=== PATIENT | female | born 1950 | race Caucasian/White ===

== ENCOUNTER 2023-01-15 09:00 | Outpatient (CLI) | payer MEDICARE, SELFPAY | END 2023-01-15 09:01 | disposition home or self-care (01) | LOC: NFLDREF 17:37 | PROVIDERS: PCP Nurse Practitioner Family; Referring Provider Nurse Practitioner Family; Visit Provider Nurse Practitioner Family | DX: R53.83 Other fatigue (principal); Z13.6 Encounter for screening for cardiovascular disorders | CPT/HCPCS: 80053; 80061 ==

== ENCOUNTER 2023-03-20 09:58 | Outpatient (CLI) | payer MEDICARE, SELFPAY ==
--- NOTE | 2023-03-20 10:15 | CRLHL7_ITS ---
For Patients: As a result of the Century Cures Act, medical imaging exams and procedure reports are released immediately into your electronic medical record. You may view this report before your referring provider. If you have questions, please contact your health care provider. BILATERAL SCREENING MAMMOGRAM WITH COMPUTER-AIDED DETECTION AND TOMOSYNTHESIS TECHNIQUE: CC and MLO views were obtained. These mammographic images have been obtained using full-field digital technique. These mammographic images were interpreted with the benefit of computer-aided detection. Breast Tomosynthesis was used in this interpretation. COMPARISON FILM: 11/05/20, 09/04/17, 10/14/09. FINDINGS: The breasts are heterogeneously dense, which may obscure small masses IMPRESSION: There is no radiographic evidence for malignancy. ASSESSMENT: BI-RADS Category 2: Benign RECOMMENDATION: Routine screening mammogram in 1 year. A lay language report of this examination will be provided to the patient. Juan Francisco Mendoza M.D. Diagnostic Radiologist [email or web address] TANESHA/Dictated by: Juan Francisco Mendoza MD @ 03/22/2023 11:35:00 AM (Electronically Signed)
== END 2023-03-20 09:59 | disposition home or self-care (01) ==
LOC: MAMMO 09:59
PROVIDERS: PCP Nurse Practitioner Family; Visit Provider Nurse Practitioner Family
DX: Z12.31 Encounter for screening mammogram for malignant neoplasm of breast (principal); R92.2 Inconclusive mammogram
CPT/HCPCS: 77063; 77067

== ENCOUNTER 2024-03-07 09:26 | Inpatient (IN) | payer MEDICARE, SELFPAY ==
[2024-03-07] VITALS (20 sets, daily range): BP systolic 84–118; BP diastolic 58–81; PULSE 67–88; RESP 14–96; TEMP 36.1–37.1; O2SAT 93–98; BMI 23.7; BMI 23.4
--- NOTE | 2024-03-07 09:39 | ED.GENADULT ---
HPI - General Adult General Time Seen by Provider: 09:39 Date Seen: 03/07/24 Chief complaint: Weakness Stated complaint: Nausea, weakness Time Seen by Provider: 03/07/24 09:38 Source: patient and RN notes reviewed Mode of arrival: ambulatory Limitations: no limitations History of Present Illness HPI narrative: This 73-year-old female is coming in accompanied by family with complaint of anorexia and weakness. Over the weekend she ran fevers up to 102, had headaches with this. Headaches have somewhat resolved but she still left with lack of appetite, nausea without vomiting. She has not had any diarrhea or abdominal pain. She really has not had any stool production but admits she is not eating. She has both nausea and anorexia. She is feeling dehydrated. She has had no cough, no sore throat, respiratory symptoms. Denies any urinary symptoms but has not urinated, feels this is from a lack of hydration. She has no pain anywhere at this time. She just has no energy, is weak. She was at a family reunion 2 weeks ago. Denies any chronic health issues outside of reflux disease. Her mom of recurrent breast cancer, dad from multiple myeloma. Related Data Home Medications ?Medication ?Instructions ?Recorded ?Confirmed pantoprazole 40 mg tablet,delayed 40 mg PO QDAY 09/14/22 03/07/24 release tolterodine 4 mg capsule,extended 4 mg PO Q24H 09/14/22 12/21/22 release 24 hr Previous Rx's ?Medication ?Instructions ?Recorded estradiol 0.01% (0.1 mg/gram) 1 g vaginal 2XW #42.5 grams 12/21/22 vaginal cream Allergies Allergy/AdvReac Type Severity Reaction Status Date / Time bupropion Allergy Mild Rash Verified 03/07/24 09:35 Review of Systems Status of ROS: Reports: 6 or more systems reviewed and unremarkable except as noted in History and below [facility] Medical History Adenoma of colon ?D12.6 - Benign neoplasm of colon, unspecified (ICD-10) Surgical History S/P bunionectomy ?Z98.890 - Other specified postprocedural states (ICD-10) Family History Other Breast cancer Diabetes Social History Narrative: Tobacco user Smoking Status: Current every day smoker Exam Const: Vital Signs, click to edit/add: Vital Signs - 24 hr 03/07/24 09:30 03/07/24 09:35 03/07/24 09:37 Temperature 97 F L Pulse Rate 82 Pulse Rate [Pulse Oximeter] 88 Respiratory Rate 14 Blood Pressure Blood Pressure [Ri ght Upper Arm] 91/59 L Pulse Oximetry 96 96 93 Oxygen Delivery Me thod Room Air Room Air 03/07/24 10:01 03/07/24 10:10 03/07/24 10:11 Temperature Pulse Rate 73 75 Pulse Rate [Pulse Oximeter] Respiratory Rate 16 Blood Pressure 84/73 L 106/68 Blood Pressure [Ri ght Upper Arm] Pulse Oximetry 96 96 Oxygen Delivery Me thod Room Air Room Air Room Air 03/07/24 10:30 03/07/24 10:31 03/07/24 10:32 Temperature Pulse Rate 84 82 85 Pulse Rate [Pulse Oximeter] Respiratory Rate 16 Blood Pressure 92/65 Blood Pressure [Ri ght Upper Arm] Pulse Oximetry 95 96 96 Oxygen Delivery Me thod Room Air Room Air 03/07/24 11:01 03/07/24 11:02 03/07/24 11:30 Temperature Pulse Rate 75 80 76 Pulse Rate [Pulse Oximeter] Respiratory Rate 16 Blood Pressure 103/72 Blood Pressure [Ri ght Upper Arm] Pulse Oximetry 96 96 96 Oxygen Delivery Me thod 03/07/24 11:31 Temperature Pulse Rate 79 Pulse Rate [Pulse Oximeter] Respiratory Rate Blood Pressure 101/77 Blood Pressure [Ri ght Upper Arm] Pulse Oximetry 97 Oxygen Delivery Me thod This 73-year-old female is alert, interactive, no apparent stress. She is alert and conversive, able speak in complete sentences. She is of slender frame. Sclera clear, conjugate gaze. Symmetrical facial function. Neck is supple, no adenopathy, no thyromegaly masses or nodules. She is able to sit up, lungs are clear, good air entry, no wheezing or crackles, no tachypnea. CV regular rate and rhythm, no murmur, normal S1-S2, no S3-S4. While I was in with her, on the complaint analyst she had a short maybe 3 or 4 second run of probable SVT. Rate was about 180, definitely regular. Patient did not feel this at all. Abdomen is soft, nontender, nondistended, no organomegaly, no masses, rebound or guarding. She has absolutely no lower extremity edema. See no concerning changes on her skin. She is moving extremities, no focal deficit noted. Documenting provider has reviewed patient's vital signs: yes Course Course ED Course: This is a patient presenting with generalized weakness, fevers over the weekend but now gone. She still has anorexia, nausea. Also noted a she short run of SVT here, did review this with her, certainly could be indicative of underlying dehydration and illness. Do wonder about COVID, this is been collected. Will give her L of IV fluids, obtain full complement of labs. Will not be doing a blood culture at this time but need to consider it if this does look like this is a significant infection. Will do screening portable chest x-ray. May need to consider adding on tick-borne panel given her history and if no other source is found. Did review with her that occult UTIs can% to this way in older individuals. This certainly could just be a viral syndrome like COVID. Etiologies are brought at this point, will do advanced imaging if need be. She is certainly has a lower blood pressure on presentation but this is a slender woman, will watch this blood pressure. Will see how she feels after a L of IV fluids. Consultations Consultation #1: Have reviewed this case with hospitalist Dr. Velez. She was actually down here in the ER, believes that this patient should be hospitalized as well, went over the case. Went into introduce the patient and the hospitalists, explained briefly our concern for tick-borne pathology. Will initiate 100 mg IV doxycycline. Patient did also get a 2 L of fluids while in the ER, certainly has dehydration. Have added on tick panel, Lyme, West Nile as well as a Monospot given the elevated liver enzymes. Not very likely to be mono but will be inclusive in the workup. Time: 11:50 Vital Signs Vital signs: Initial Vital Signs Pulse Oximetry 96 03/07/24 09:30 Vital Signs Pulse Oximetry 96 03/07/24 09:30 Temperature 97 F L 03/07/24 09:35 Pulse Rate 79 03/07/24 11:31 Respiratory Rate 16 03/07/24 11:02 Blood Pressure 101/77 03/07/24 11:31 Pulse Oximetry 97 03/07/24 11:31 Oxygen Delivery Method Room Air 03/07/24 10:31 Medications Administered Medications: Generic Name Dose Route Start Last Admin Trade Name Freq PRN Reason Stop Dose Admin Sodium Chloride 1,000 mls @ 500 mls/hr 03/07/24 10:51 03/07/24 11:05 0.9 % Sodium Chloride 1000 Ml IV 03/07/24 12:50 500 mls/hr .Q2H SUSAN Administration Discontinued Medications Generic Name Dose Route Start Last Admin Trade Name Freq PRN Reason Stop Dose Admin Sodium Chloride 1,000 mls @ 1,000 mls/hr 03/07/24 09:47 03/07/24 10:55 0.9 % Sodium Chloride 1000 Ml IV 03/07/24 10:46 Infused .Q1H SUSAN Infusion Medical Decision Making Lab Data Lab results reviewed: Yes I reviewed the patient's lab results Labs: Lab Results 03/07/24 03/07/24 03/07/24 Range/Units 09:35 09:55 10:55 WBC 5.43 (4.50-11.00) K/uL RBC 5.15 (4.00-5.20) m/uL Hgb 16.3 H (12.0-16.0) gm/dL Hct 47.4 (33.0-51.0) % MCV 92 (80-100) fL MCH 32 (26-34) pg MCHC 34 (32-36) gm/dL RDW Coeff of [place] 13.6 (11.5-15.5) % Plt Count 60 L (140-440) K/uL Neut % (Auto) 55.4 (42.0-72.0) % Lymph % (Auto) 36.8 (20-44) % [place] % (Auto) 6.6 (0.0-11.0) % Eos % (Auto) 0.2 (0.0-7.0) % Baso % (Auto) 0.6 (0.0-3.0) % Neut # (Auto) 3.01 (1.7-7.0) K/uL Lymph # (Auto) 2.00 (0.90-2.90) K/uL [place] # (Auto) 0.40 (0.00-0.90) K/UL Eos # (Auto) 0.01 (0.00-0.50) K/uL Baso # (Auto) 0.03 (0.00-0.30) K/uL Abs Immat Gran (auto) 0.02 (0.00-0.30) K/uL Imm/Tot Granulo (auto) 0.4 % Diff Slide Review Acceptable Review (Acceptable) Sodium 131 L (135-149) mmol/L Potassium 3.3 L (3.6-5.1) mmol/L Chloride 100 (96-114) mmol/L Carbon Dioxide 22 (20-32) mmol/L Anion Gap 9 (7-15) mEq/L BUN 40 H (7-30) mg/dL Creatinine 1.4 (0.5-1.5) mg/dL Estimated Creat Clear 31.83 Estimated GFR 40 ml/min Glucose 139 H (60-115) mg/dL Lactate 2.5 H (0.5-1.9) mmol/L Calcium 8.8 (8.4-10.6) mg/dL Magnesium 2.2 (1.5-2.6) mg/dL Total Bilirubin 1.1 (0.1-1.5) mg/dL AST 60 H (12-35) U/L ALT 27 (4-35) U/L Alkaline Phosphatase 184 H (40-150) U/L Troponin I < 0.01 L (0.01-0.04) ng/mL C-Reactive Protein 21.4 H (0.5-1.0) mg/dL NT-Pro-B Natriuret Pep 265 pg/mL Total Protein 6.6 (6.0-8.3) g/dL Albumin 3.4 (3.3-5.0) g/dL Procalcitonin 2.84 H (<0.50) ng/mL Urine Color Dark yellow (Yellow) Urine Appearance Clear (Clear) Urine pH 5.5 (5.0-8.5) Ur Specific [place] 1.025 (1.000-1.030) Urine Protein 2+ A (Negative) Urine Glucose (UA) Negative (Negative) Urine Ketones Negative (Negative) Urine Blood 3+ A (Negative) Urine Nitrite Negative (Negative) Urine Bilirubin 1+ A (Negative) Urine Urobilinogen 2.0 A (0.2-1.0) Ur Leukocyte Esterase Negative (Negative) Urine RBC 10-25 A (0-2) Urine WBC 10-25 A (0-5) Ur Squamous Epith Cells Moderate A (None-Few) Urine Bacteria Many A (None) Hyaline Casts Moderate A (None-Few) SARS-CoV-2 (PCR) Negative SARS-CoV-2 (Negative) Influenza Type A (PCR) Negative PCR FLU A (Negative) Influenza Type B (PCR) Negative PCR FLU B (Negative) RSV (PCR) Negative PCR RSV (Negative) Imaging Data Chest x-ray: Attestation: I have reviewed the pertinent imaging results. My impression: No acute pneumonia or infiltrate seen on my preliminary review. Radiologist's impression: Patient: [facility] Facility:?[facility] Patient ID:?[id number] Site Patient ID:?[id number]. Site :?[id number] Study:?XRay-Chest 1 VIEW-03/07/2024 10:03:41 AM Ordering Physician:?Devon Wills Final Report: Indication: Weakness Technique: Chest 1 view Comparison: None Findings/Impression: Cardiovascular and mediastinum: Normal heart size with aortic tortuosity and atherosclerotic calcification. Some prominence of the aortic shadow at the level of the diaphragm. This can represent some aortic enlargement or hiatal hernia. As clinically desired, CT scan may have improved characterization. Lungs and pleural space: Lungs are clear. No sign of infiltrate or mass. No sign of pleural effusion. No pneumothorax. Bones and soft tissues: No acute findings. Dictated by Abelino Alvarez MD @ 03/07/2024 10:19:43 AM (Electronic Signature) ECG Data Attestation: I personally reviewed and interpreted this ECG as follows: (Normal sinus rhythm, 89 beats per minute. No acute ischemic change.) Prior ECG tracings: not available for review Discharge Plan Discharge Clinical Impression: Weakness, Acute dehydration, Thrombocytopenia, Elevated liver enzymes Patient Disposition: Admitted As Observation Condition: Unchanged Prescriptions: No Action tolterodine 4 mg capsule,extended release 24hr 4 mg PO Q24H pantoprazole 40 mg tablet,delayed release (DR/EC) 40 mg PO QDAY estradiol 0.01 % (0.1 mg/gram) cream 1 g vaginal 2XW Qty: 42.5 0RF Follow Up/Referrals: Charlee Ching, [facility] [Primary Care Provider] -
--- NOTE | 2024-03-07 09:47 | CRLHL7_ITS ---
For Patients: As a result of the Century Cures Act, medical imaging exams and procedure reports are released immediately into your electronic medical record. You may view this report before your referring provider. If you have questions, please contact your health care provider. Indication: Weakness Technique: Chest 1 view Comparison: None Findings/Impression: Cardiovascular and mediastinum: Normal heart size with aortic tortuosity and atherosclerotic calcification. Some prominence of the aortic shadow at the level of the diaphragm. This can represent some aortic enlargement or hiatal hernia. As clinically desired, CT scan may have improved characterization. Lungs and pleural space: Lungs are clear. No sign of infiltrate or mass. No sign of pleural effusion. No pneumothorax. Bones and soft tissues: No acute findings. Dictated by Abelino Alvarez MD @ 03/07/2024 10:19:43 AM (Electronically Signed)
[2024-03-07] MEDS: 0.9 % SODIUM CHLORIDE 1000 ml 1,000 ML IV (09:57)
[2024-03-07 10:04] LABS: Basophils Absolute Auto 0.03 K/uL (0.00-0.30); Basophils Percent Auto 0.6 % (0.0-3.0); Eosinophils Absolute Auto 0.01 K/uL (0.00-0.50); Eosinophils Percent Auto 0.2 % (0.0-7.0); Hematocrit 47.4 % (33.0-51.0); Hemoglobin* 16.3 gm/dL (12.0-16.0); Immature Granulocytes Abs Auto 0.02 K/uL (0.00-0.30); Immature Granulocytes Pct Auto 0.4 %; Lymphocytes Percent Auto 36.8 % (20-44); Mean Corpuscular HGB Conc 34 gm/dL (32-36); Mean Corpuscular Hemoglobin 32 pg (26-34); Mean Corpuscular Volume 92 fL (80-100); Monocytes Percent Auto 6.6 % (0.0-11.0); Neutrophils Absolute Auto 3.01 K/uL (1.7-7.0); Neutrophils Percent Auto 55.4 % (42.0-72.0); RDW Coefficient of Variation % 13.6 % (11.5-15.5); Red Blood Count 5.15 m/uL (4.00-5.20); White Blood Count* 5.43 K/uL (4.50-11.00)
[2024-03-07 10:33] LABS: Lactate* 2.5 mmol/L (0.5-1.9)
[2024-03-07 10:34] LABS: PCR FLU A Negative PCR FLU A (Negative); PCR FLU B Negative PCR FLU B (Negative); PCR RSV Negative PCR RSV (Negative); SARS PCR* Negative SARS-CoV-2 (Negative)
[2024-03-07 10:39] LABS: Platelet Count* 60 K/uL (140-440); Slide Review Reflex Yes
[2024-03-07 10:42] LABS: Slide Review Acceptable Review (Acceptable)
[2024-03-07 10:48] LABS: Albumin* 3.4 g/dL (3.3-5.0); Chloride* 100 mmol/L (96-114)
[2024-03-07 10:49] LABS: Potassium* 3.3 mmol/L (3.6-5.1); Sodium* 131 mmol/L (135-149)
[2024-03-07 10:51] LABS: Creatinine* 1.4 mg/dL (0.5-1.5); Est. Creatinine Clearance* 31.83; Estimated Glomerular Filt Rate 40 ml/min
[2024-03-07 10:52] LABS: Alanine Aminotransferase* 27 U/L (4-35); Alkaline Phosphatase* 184 U/L (40-150); Anion Gap 9 mEq/L (7-15); Aspartate Amino Transferase* 60 U/L (12-35); Bilirubin Total* 1.1 mg/dL (0.1-1.5); Blood Urea Nitrogen* 40 mg/dL (7-30); Calcium* 8.8 mg/dL (8.4-10.6); Carbon Dioxide* 22 mmol/L (20-32); Glucose* 139 mg/dL (60-115); Total Protein* 6.6 g/dL (6.0-8.3)
[2024-03-07 10:53] LABS: Magnesium* 2.2 mg/dL (1.5-2.6)
[2024-03-07 11:04] LABS: NT Pro B Type NatriureticPept* 265 pg/mL; Troponin I* < 0.01 ng/mL (0.01-0.04)
[2024-03-07] MEDS: 0.9 % SODIUM CHLORIDE 1000 ml 1,000 ML 500 ML IV (11:05)
[2024-03-07 11:08] LABS: Appearance Urine Clear (Clear); Bilirubin Urine 1+ (Negative); Blood Urine 3+ (Negative); Color Urine Dark yellow (Yellow); Glucose Urine Negative (Negative); Ketones Urine Negative (Negative); Leukocyte Esterase Urine Negative (Negative); Nitrite Urine Negative (Negative); Protein Urine 2+ (Negative); Specific Gravity Urine 1.025 (1.000-1.030); pH Urine 5.5 (5.0-8.5)
[2024-03-07 11:09] LABS: Procalcitonin* 2.84 ng/mL (<0.50)
[2024-03-07 11:10] LABS: C Reactive Protein* 21.4 mg/dL (0.5-1.0)
[2024-03-07 11:19] LABS: Bacteria Urine Many; Squamous Epithelial Cell Urine Moderate (None-Few)
[2024-03-07 11:20] LABS: Hyaline Casts Urine Moderate (None-Few)
[2024-03-07] MEDS: DOXYCYCLINE HYCLATE 100 MG in 0.9 % SODIUM CHLORIDE Mini-bag 100 ML IVPB (12:10)
--- NOTE | 2024-03-07 13:19 | PM.IMHP1 ---
Hospitalist- H&P: HPI History of Present Illness Date Seen: 03/07/24 Chief complaint: Nausea, weakness Narrative: Radha Mancuso is a 73 year old female who presented to the emergency room this morning for a 1 week history of illness, weakness, and poor appetite. She's felt sick for the past 6-7 days, had a fever and headache at onset of symptoms; both have since resolved, but she continues to feel weak and isn't interested in eating or drinking. Hasn't noted any significant alleviating or aggravating factors. No chest pain, no dyspnea, no cough, no rashes, no joint pain, no dysuria. She was at a family reunion near [place] on February 22, multiple family members did note ticks at that time. ER Course and Findings: - platelets 60 (new finding), AST 60, elevated alk phos - WBC 5, elevated lactate - hematuria and pyuria on UA, culture pending - received 1L IVFs, IV Doxycycline - reassuring EKG, did have a short run of SVT on monitor during ER stay (pt asymptomatic during this) Review of Systems Status of ROS: Reports: 10 or more systems reviewed and unremarkable except as noted in History and below [facility] Medical History (Updated 03/07/24 @ 15:09 by Cele Velez MD) Screening for breast cancer ?Z12.39 - Encounter for other screening for malignant neoplasm of breast (ICD-10) Screening for colon cancer ?Z12.11 - Encounter for screening for malignant neoplasm of colon (ICD-10) Acute insomnia ?G47.00 - Insomnia, unspecified (ICD-10) GERD (gastroesophageal reflux disease) ?K21.9 - Gastro-esophageal reflux disease without esophagitis (ICD-10) Vaginal dryness ?N89.8 - Other specified noninflammatory disorders of vagina (ICD-10) Adenoma of colon ?D12.6 - Benign neoplasm of colon, unspecified (ICD-10) Surgical History S/P bunionectomy ?Z98.890 - Other specified postprocedural states (ICD-10) Family History Other Breast cancer Diabetes Social History (Updated 03/07/24 @ 14:02 by Cele Velez MD) Narrative: Retired, worked at [employer] for many years. Lives in [place] with , he would be medical decision maker if needed. Adult children. 1ppd smoker for many years, occasional social ETOH. Full Code. What is your current living situation?: I presently have a place to live Problems where you live: no known problems Problems where you live details: n/a In the past 12 months, utilities in danger of being shut off: no In past 12 months, lack of transportation kept you from medical appts, meetings, work, or getting things needed for daily living: no In the past 12 mos, have been you worried that your food would run out before you had money to buy more?: never true In the past 12 mos, the food you bought just didn't last and you didn't have money to buy more?: never true Highest level of school completed/degree received: high school graduate Smoking Status: Current every day smoker What tobacco products do you use: cigarettes Smoking packs per day: 1 Smoking cigarettes per day: 20.0 How often do you have a drink containing alcohol: monthly or less How many standard drinks containing alcohol do you have on a typical day: 1 or 2 How often do you have six or more drinks on one occasion: Never AUDIT-C Alcohol total score: 1 Non-prescribed substance use: denies use Caffeine: Yes (coffee) How often does anyone, including family, friends and others, physically hurt you: never How often does anyone, including family, friends and others, insult or talk down to you: never How often does anyone, including family, friends and others, threaten you with harm: never How often does anyone, including family, friends and others, scream or curse at you: never service: No Meds Home Medications and Allergies Home Medications ?Medication ?Instructions ?Recorded ?Confirmed ?Type omeprazole 20 mg tablet,delayed 20 mg PO DAILY 03/07/24 03/07/24 History release Allergies Allergy/AdvReac Type Severity Reaction Status Date / Time bupropion Allergy Mild Rash Verified 03/07/24 09:35 Exam Narrative: Exam Narrative: GEN: Alert and oriented, nontoxic HEENT: EOMIs bilaterally, no scleral icterus CV: RRR, No concerning murmurs, rubs, or gallops R: LCTA bilaterally Ab: soft, nontender, no masses, negative Winkler's sign Ext: wwp, no concerning edema Skin: No concerning skin lesions or rashes on exposed skin Neuro: No focal deficits, no resting tremor Psych: Appropriate Const: Vital Signs, click to edit/add: Vital Signs - 24 hr 03/07/24 09:30 03/07/24 09:35 03/07/24 09:37 Temperature 97 F L Pulse Rate 82 Pulse Rate [Left P ulse Oximeter] Pulse Rate [Pulse Oximeter] 88 Respiratory Rate 14 Blood Pressure Blood Pressure [Le ft Arm] Blood Pressure [Ri ght Upper Arm] 91/59 L Pulse Oximetry 96 96 93 Oxygen Delivery Tx thod Room Air Room Air 03/07/24 10:01 03/07/24 10:10 03/07/24 10:11 Temperature Pulse Rate 73 75 Pulse Rate [Left P ulse Oximeter] Pulse Rate [Pulse Oximeter] Respiratory Rate 16 Blood Pressure 84/73 L 106/68 Blood Pressure [Le ft Arm] Blood Pressure [Ri ght Upper Arm] Pulse Oximetry 96 96 [facility] Room Air Room Air 03/07/24 10:30 03/07/24 10:31 03/07/24 10:32 Temperature Pulse Rate 84 82 85 Pulse Rate [Left P ulse Oximeter] Pulse Rate [Pulse Oximeter] Respiratory Rate 16 Blood Pressure 92/65 Blood Pressure [Le ft Arm] Blood Pressure [Ri ght Upper Arm] Pulse Oximetry 95 96 96 [facility] Room Air 03/07/24 11:01 03/07/24 11:02 03/07/24 11:30 Temperature Pulse Rate 75 80 76 Pulse Rate [Left P ulse Oximeter] Pulse Rate [Pulse Oximeter] Respiratory Rate 16 Blood Pressure 103/72 Blood Pressure [Le ft Arm] Blood Pressure [Ri ght Upper Arm] Pulse Oximetry 96 96 96 Oxygen Delivery Me thod 03/07/24 11:31 03/07/24 12:52 Temperature 98.8 F Pulse Rate 79 Pulse Rate [Left P ulse Oximeter] 82 Pulse Rate [Pulse Oximeter] Respiratory Rate 18 Blood Pressure 101/77 Blood Pressure [Le ft Arm] 118/81 Blood Pressure [Ri ght Upper Arm] Pulse Oximetry 97 98 Oxygen Delivery Me thod Room Air Hospitalist - H&P: Result Labs Labs: Short CBC 03/07/24 Range/Units 09:55 WBC 5.43 (4.50-11.00) K/uL Hgb 16.3 H (12.0-16.0) gm/dL Hct 47.4 (33.0-51.0) % Plt Count 60 L (140-440) K/uL BMP 03/07/24 09:55 Sodium 131 L Potassium 3.3 L Chloride 100 Carbon Dioxide 22 BUN 40 H Creatinine 1.4 Glucose 139 H Calcium 8.8 Cardiac Enzymes 03/07/24 Range/Units 09:55 Troponin I < 0.01 L (0.01-0.04) ng/mL Liver Function 03/07/24 Range/Units 09:55 Total Bilirubin 1.1 (0.1-1.5) mg/dL AST 60 H (12-35) U/L ALT 27 (4-35) U/L Alkaline Phosphatase 184 H (40-150) U/L Albumin 3.4 (3.3-5.0) g/dL Urine 03/07/24 Range/Units 10:55 Urine Color Dark yellow (Yellow) Urine Appearance Clear (Clear) Urine pH 5.5 (5.0-8.5) Ur Specific [place] 1.025 (1.000-1.030) Urine Protein 2+ A (Negative) Urine Glucose (UA) Negative (Negative) Assessment and Plan Assessment and plan (1) Acute dehydration: Problem comment: - poor po intake, elevated lactate, MARLENE - clinical picture c/w tick-borne illness, tests pending, Doxycycline empirically initiated 03/07/24 Status: Acute (2) MARLENE (acute kidney injury): Problem comment: - baseline creatinine 0.8, admission creatinine 1.4 (03/07) - presumably prerenal given recent illness - continue IVFs, close monitoring Status: Acute (3) Elevated liver enzymes: Problem comment: - likely related to acute illness, no significant ETOH history, no abdominal pain - continue to trend, deferring imaging at this time Status: Acute (4) Thrombocytopenia: Problem comment: - platelets 60 (03/07), no acute bleeding, likely 2/2 tick-borne illness - follow Status: Acute (5) Tobacco dependence: Problem comment: - 1ppd, prn nicotine replacement Status: Acute (6) Bacteriuria: Problem comment: - culture pending, empirically cover with Ceftriaxone (03/07) Status: Acute Plan - per above - SCDs for ppx (no pharmacologic ppx given thrombocytopenia) - family updated at bedside, questions answered
[2024-03-07 14:04] LABS: Lactate* 1.1 mmol/L (0.5-1.9)
[2024-03-07] MEDS: cefTRIAXone 1 GM in 0.9 % SODIUM CHLORIDE Mini-bag 100 ML IVPB (14:19)
[2024-03-07] MEDS: POTASSIUM BICARB 25 MEQ EFFERVESCENT TAB PO ×2 (14:19→16:19)
[2024-03-07 14:56] LABS: Mono Screen* Negative (Negative)
[2024-03-07] MEDS: 0.9 % SODIUM CHLORIDE 1000 ml 1,000 ML 125 ML IV (17:17)
--- NOTE | 2024-03-07 19:17 | PC.NURSE ---
End of Shift: Patient pleasant and cooperative, A&O. VSS, afebrie. Patient did have slight hypotension at 1500 vitals, MD notified. Patient denies pain this shift. SBA
[2024-03-07] MEDS: DOXYCYCLINE HYCLATE 100 MG PO (20:45)
[2024-03-08] VITALS (8 sets, daily range): BP systolic 97–122; BP diastolic 65–95; PULSE 57–95; RESP 16–18; TEMP 36.4–37.3; O2SAT 95–98
[2024-03-08] MEDS: 0.9 % SODIUM CHLORIDE 1000 ml 1,000 ML 125 ML IV (01:28)
[2024-03-08] MEDS: OMEPRAZOLE 20 MG CAPSULE DR 40 MG PO (06:20)
[2024-03-08 06:21] LABS: Lactate* 0.9 mmol/L (0.5-1.9)
[2024-03-08 06:33] LABS: Basophils Absolute Auto 0.03 K/uL (0.00-0.30); Basophils Percent Auto 0.5 % (0.0-3.0); Eosinophils Absolute Auto 0.06 K/uL (0.00-0.50); Hematocrit 38.2 % (33.0-51.0); Immature Granulocytes Abs Auto 0.01 K/uL (0.00-0.30); Immature Granulocytes Pct Auto 0.2 %; Lymphocytes Percent Auto 56.8 % (20-44); Mean Corpuscular HGB Conc 34 gm/dL (32-36); Mean Corpuscular Hemoglobin 32 pg (26-34); Mean Corpuscular Volume 93 fL (80-100); Neutrophils Percent Auto 32.5 % (42.0-72.0); RDW Coefficient of Variation % 13.9 % (11.5-15.5); Red Blood Count 4.11 m/uL (4.00-5.20)
--- NOTE | 2024-03-08 06:33 | PC.NURSE ---
End of shift note ([id number]): Patient pleasant, alert and oriented. Requested help pushing IV pole when ambulating to and from bathroom. Tolerating regular diet. Refused SCDs. Denied any nausea or discomfort. IV patent but had some minor bleeding at site. ?
[2024-03-08 06:35] LABS: Platelet Count* 31 K/uL (140-440); Slide Review Reflex Yes
[2024-03-08 06:37] LABS: Slide Review Acceptable Review (Acceptable)
[2024-03-08 06:45] LABS: Albumin* 2.4 g/dL (3.3-5.0); Chloride* 110 mmol/L (96-114); Sodium* 135 mmol/L (135-149)
[2024-03-08 06:46] LABS: Potassium* 3.5 mmol/L (3.6-5.1)
[2024-03-08 06:48] LABS: Alanine Aminotransferase* 22 U/L (4-35); Alkaline Phosphatase* 117 U/L (40-150); Anion Gap 2 mEq/L (7-15); Aspartate Amino Transferase* 46 U/L (12-35); Bilirubin Total* 0.8 mg/dL (0.1-1.5); Blood Urea Nitrogen* 25 mg/dL (7-30); Calcium* 7.9 mg/dL (8.4-10.6); Carbon Dioxide* 23 mmol/L (20-32); Creatinine* 0.7 mg/dL (0.5-1.5); Est. Creatinine Clearance* 44.56; Estimated Glomerular Filt Rate 92 ml/min; Glucose* 95 mg/dL (60-115); Total Protein* 5.1 g/dL (6.0-8.3)
[2024-03-08 06:49] LABS: Magnesium* 1.9 mg/dL (1.5-2.6)
[2024-03-08 07:04] LABS: Procalcitonin* 1.29 ng/mL (<0.50)
[2024-03-08] MEDS: DOXYCYCLINE HYCLATE 100 MG PO ×2 (08:24→21:13)
[2024-03-08] MEDS: POTASSIUM BICARB 25 MEQ EFFERVESCENT TAB PO (08:24)
--- NOTE | 2024-03-08 09:13 | P.IMPN_ITS ---
Progress Note: A&P Assessment and plan (1) Acute dehydration: Problem details: - poor po intake, elevated lactate, MARLENE - clinical picture c/w tick-borne illness, tests pending, Doxycycline empirically initiated 03/07/24 - 03/08 improving. Encourage oral intake of fluids. Decrease IV fluids to 75 mL/hour. Status: Acute (2) MARLENE (acute kidney injury): Problem details: - baseline creatinine 0.8, admission creatinine 1.4 (03/07) - presumably prerenal given recent illness - 03/08 resolved, creatinine now at baseline 0.7. Decrease IV fluids. Status: Resolved (3) Elevated liver enzymes: Problem details: - likely related to acute illness, no significant ETOH history, no abdominal pain - continue to trend, deferring imaging at this time - 03/08 improving. Continue treating for presumed tick-borne illnesses Status: Acute (4) Thrombocytopenia: Problem details: - platelets 31 (03/08), no acute bleeding, likely 2/2 tick-borne illness. No active bleeding or bruising. - No transfusion needed at this time. I have reviewed her medications and see there are no anticoagulants. Avoid pharmacologic VTE proplylaxis at this time. Status: Acute (5) Tobacco dependence: Problem details: - 1ppd, prn nicotine replacement Status: Chronic (6) SVT (supraventricular tachycardia): Problem details: - self-resolved quick run in ED, will keep on telemetry, replace K, normal Mg Status: Resolved (7) Bacteriuria: Problem details: - culture pending, empirically cover with Ceftriaxone (03/07) Status: Acute (8) Hypokalemia: Problem details: Mg 1.9 this am. Continue to replace K orally. Recheck in am. Status: Acute Plan - presumed tick-borne illness, panel pending. Continue doxycycline. Although this does not cover babesia sp., patient is improving. Tick panel pending. Continue to monitor as inpatient due to decreasing platelets. Subjective Time Seen by Provider: 08:05 Date Seen: 03/08/24 Interval history: Radha is feeling a bit better today. She feels better hydrated, less weak and has a slightly better appetite. She has not noted any bruising or bleeding. Exam Narrative: Exam Narrative: General: No acute distress. Awake, alert, oriented. No pallor. No jaundice. Oropharynx: Clear. Mucous membranes slightly dry. Cardiovascular: Regular rate and rhythm. No murmurs, gallops, or rubs. Respiratory: Clear to auscultation bilaterally. No wheezes or crackles. Abdomen: Bowel sounds present. Soft, nondistended, nontender. Extremities: No pedal edema. Skin: No bruising or concerning rashes noted on exposed skin. Const: Vital Signs, click to edit/add: Vital Signs - 24 hr 03/07/24 09:30 03/07/24 09:35 03/07/24 09:37 Temperature 97 F L Pulse Rate 82 Pulse Rate [Left P ulse Oximeter] Pulse Rate [Pulse Oximeter] 88 Respiratory Rate 14 Blood Pressure Blood Pressure [Le ft Arm] Blood Pressure [Ri ght Arm] Blood Pressure [Ri ght Upper Arm] 91/59 L Pulse Oximetry 96 96 93 [facility] 03/07/24 10:01 03/07/24 10:10 03/07/24 10:11 Temperature Pulse Rate 73 75 Pulse Rate [Left P ulse Oximeter] Pulse Rate [Pulse Oximeter] Respiratory Rate 16 Blood Pressure 84/73 L 106/68 Blood Pressure [Le ft Arm] Blood Pressure [Ri ght Arm] Blood Pressure [Ri ght Upper Arm] Pulse Oximetry 96 96 [facility] Room Air 03/07/24 10:30 03/07/24 10:31 03/07/24 10:32 Temperature Pulse Rate 84 82 85 Pulse Rate [Left P ulse Oximeter] Pulse Rate [Pulse Oximeter] Respiratory Rate 16 Blood Pressure 92/65 Blood Pressure [Le ft Arm] Blood Pressure [Ri ght Arm] Blood Pressure [Ri ght Upper Arm] Pulse Oximetry 95 96 96 [facility] 03/07/24 11:01 03/07/24 11:02 03/07/24 11:30 Temperature Pulse Rate 75 80 76 Pulse Rate [Left P ulse Oximeter] Pulse Rate [Pulse Oximeter] Respiratory Rate 16 Blood Pressure 103/72 Blood Pressure [Le ft Arm] Blood Pressure [Ri ght Arm] Blood Pressure [Ri ght Upper Arm] Pulse Oximetry 96 96 96 [facility] 03/07/24 11:31 03/07/24 12:52 03/07/24 15:00 Temperature 98.8 F Pulse Rate 79 78 Pulse Rate [Left P ulse Oximeter] 82 Pulse Rate [Pulse Oximeter] Respiratory Rate 18 Blood Pressure 101/77 Blood Pressure [Le ft Arm] 118/81 Blood Pressure [Ri ght Arm] Blood Pressure [Ri ght Upper Arm] Pulse Oximetry 97 98 [facility] 03/07/24 15:57 03/07/24 16:08 03/07/24 19:00 Temperature 98.4 F 98.8 F Pulse Rate Pulse Rate [Left P ulse Oximeter] 68 68 76 Pulse Rate [Pulse Oximeter] Respiratory Rate 18 18 96 H Blood Pressure Blood Pressure [Le ft Arm] 93/71 98/63 Blood Pressure [Ri ght Arm] Blood Pressure [Ri ght Upper Arm] Pulse Oximetry 97 95 [facility] Air 03/07/24 22:11 03/07/24 22:26 03/08/24 03:00 Temperature 98.7 F 98.0 F Pulse Rate 67 Pulse Rate [Left P ulse Oximeter] 74 66 Pulse Rate [Pulse Oximeter] Respiratory Rate 18 16 Blood Pressure Blood Pressure [Le ft Arm] 91/58 L 97/65 Blood Pressure [Ri ght Arm] Blood Pressure [Ri ght Upper Arm] Pulse Oximetry 95 95 [facility] Air 03/08/24 08:20 Temperature 97.6 F Pulse Rate Pulse Rate [Left P ulse Oximeter] 95 Pulse Rate [Pulse Oximeter] Respiratory Rate 18 Blood Pressure Blood Pressure [Le ft Arm] Blood Pressure [Ri ght Arm] 117/89 Blood Pressure [Ri ght Upper Arm] Pulse Oximetry 96 [facility] Labs Labs: Laboratory Results - last 24 hr 03/07/24 03/07/24 03/07/24 09:35 09:55 10:55 WBC 5.43 RBC 5.15 Hgb 16.3 H Hct 47.4 MCV 92 MCH 32 MCHC 34 RDW Coeff of Dago 13.6 Plt Count 60 L Neut % (Auto) 55.4 Lymph % (Auto) 36.8 Snyder % (Auto) 6.6 Eos % (Auto) 0.2 Baso % (Auto) 0.6 Neut # (Auto) 3.01 Lymph # (Auto) 2.00 Snyder # (Auto) 0.40 Eos # (Auto) 0.01 Baso # (Auto) 0.03 Abs Immat Gran (auto) 0.02 Imm/Tot Granulo (auto) 0.4 Diff Slide Review Acceptable Review Sodium 131 L Potassium 3.3 L Chloride 100 Carbon Dioxide 22 Anion Gap 9 BUN 40 H Creatinine 1.4 Estimated Creat Clear 31.83 Estimated GFR 40 Glucose 139 H Lactate 2.5 H Calcium 8.8 Magnesium 2.2 Total Bilirubin 1.1 AST 60 H ALT 27 Alkaline Phosphatase 184 H Troponin I < 0.01 L C-Reactive Protein 21.4 H NT-Pro-B Natriuret Pep 265 Total Protein 6.6 Albumin 3.4 Procalcitonin 2.84 H TSH Urine Color Dark yellow Urine Appearance Clear Urine pH 5.5 Ur Specific [place] 1.025 Urine Protein 2+ A Urine Glucose (UA) Negative Urine Ketones Negative Urine Blood 3+ A Urine Nitrite Negative Urine Bilirubin 1+ A Urine Urobilinogen 2.0 A Ur Leukocyte Esterase Negative Urine RBC 10-25 A Urine WBC 10-25 A Ur Squamous Epith Cells Moderate A Urine Bacteria Many A Hyaline Casts Moderate A SARS-CoV-2 (PCR) Negative SARS-CoV-2 Monoscreen Influenza Type A (PCR) Negative PCR FLU A Influenza Type B (PCR) Negative PCR FLU B RSV (PCR) Negative PCR RSV 03/07/24 03/07/24 03/08/24 11:09 13:56 05:52 WBC 6.30 RBC 4.11 Hgb 13.0 Hct 38.2 MCV 93 MCH 32 MCHC 34 RDW Coeff of Dago 13.9 Plt Count 31 L* Neut % (Auto) 32.5 L Lymph % (Auto) 56.8 H Snyder % (Auto) 9.0 Eos % (Auto) 1.0 Baso % (Auto) 0.5 Neut # (Auto) 2.00 Lymph # (Auto) 3.60 H Snyder # (Auto) 0.60 Eos # (Auto) 0.06 Baso # (Auto) 0.03 Abs Immat Gran (auto) 0.01 Imm/Tot Granulo (auto) 0.2 Diff Slide Review Acceptable Review Sodium 135 Potassium 3.5 L Chloride 110 Carbon Dioxide 23 Anion Gap 2 L BUN 25 Creatinine 0.7 Estimated Creat Clear 44.56 Estimated GFR 92 Glucose 95 Lactate 1.1 0.9 Calcium 7.9 L Magnesium 1.9 Total Bilirubin 0.8 AST 46 H ALT 22 Alkaline Phosphatase 117 Troponin I C-Reactive Protein NT-Pro-B Natriuret Pep Total Protein 5.1 L Albumin 2.4 L Procalcitonin 1.29 H TSH 1.260 Urine Color Urine Appearance Urine pH Ur Specific [place] Urine Protein Urine Glucose (UA) Urine Ketones Urine Blood Urine Nitrite Urine Bilirubin Urine Urobilinogen Ur Leukocyte Esterase Urine RBC Urine WBC Ur Squamous Epith Cells Urine Bacteria Hyaline Casts SARS-CoV-2 (PCR) Monoscreen Negative Influenza Type A (PCR) Influenza Type B (PCR) RSV (PCR)
[2024-03-08] MEDS: 0.9 % SODIUM CHLORIDE 1000 ml 1,000 ML 75 ML IV (11:02)
[2024-03-08] MEDS: cefTRIAXone 1 GM in 0.9 % SODIUM CHLORIDE Mini-bag 100 ML IVPB (14:39)
--- NOTE | 2024-03-08 18:54 | PC.NURSE ---
End of Shift: The patient is pleasant and alert and orientated. VSS on RA. The patient reports feeling well today... reported no symptoms today. IV fluids continue... PO intake is noted to be poor. Platelet levels were noted to drop this AM a substantial amount. She was educated on how to prevent bleeding with this and that she may bruise ore easily. The patient also reports no craving for nicotine. Up ad heath.... BM this shift. Call light within reach. Laisha DE LEÓN, BSN
[2024-03-08 23:11] LABS: Lyme ELISA Reflex 0.51 IV (<=0.90)
[2024-03-09] MEDS: 0.9 % SODIUM CHLORIDE 1000 ml 1,000 ML 75 ML IV (01:02)
[2024-03-09 03:00] VITALS: BP 94/67; PULSE 61; RESP 18; TEMP 36.9; O2SAT 95
[2024-03-09 06:00] LABS: Basophils Absolute Auto 0.03 K/uL (0.00-0.30); Basophils Percent Auto 0.4 % (0.0-3.0); Eosinophils Absolute Auto 0.12 K/uL (0.00-0.50); Eosinophils Percent Auto 1.8 % (0.0-7.0); Hematocrit 36.2 % (33.0-51.0); Hemoglobin* 12.1 gm/dL (12.0-16.0); Immature Granulocytes Abs Auto 0.01 K/uL (0.00-0.30); Immature Granulocytes Pct Auto 0.1 %; Lymphocytes Percent Auto 59.4 % (20-44); Mean Corpuscular HGB Conc 33 gm/dL (32-36); Mean Corpuscular Hemoglobin 31 pg (26-34); Mean Corpuscular Volume 93 fL (80-100); Monocytes Percent Auto 9.2 % (0.0-11.0); Neutrophils Percent Auto 29.1 % (42.0-72.0); Platelet Count* 57 K/uL (140-440); RDW Coefficient of Variation % 14.3 % (11.5-15.5); Red Blood Count 3.88 m/uL (4.00-5.20); White Blood Count* 6.83 K/uL (4.50-11.00)
[2024-03-09 06:01] LABS: Slide Review Reflex Yes
[2024-03-09 06:11] LABS: Albumin* 2.4 g/dL (3.3-5.0); Chloride* 110 mmol/L (96-114); Potassium* 3.5 mmol/L (3.6-5.1); Sodium* 136 mmol/L (135-149)
[2024-03-09 06:13] LABS: Creatinine* 0.6 mg/dL (0.5-1.5); Est. Creatinine Clearance* 44.56; Estimated Glomerular Filt Rate 96 ml/min
[2024-03-09 06:14] LABS: Alanine Aminotransferase* 19 U/L (4-35); Alkaline Phosphatase* 100 U/L (40-150); Anion Gap 2 mEq/L (7-15); Aspartate Amino Transferase* 39 U/L (12-35); Bilirubin Total* 0.6 mg/dL (0.1-1.5); Blood Urea Nitrogen* 16 mg/dL (7-30); Calcium* 7.9 mg/dL (8.4-10.6); Carbon Dioxide* 24 mmol/L (20-32); Glucose* 106 mg/dL (60-115); Total Protein* 5.1 g/dL (6.0-8.3)
[2024-03-09 06:28] LABS: Slide Review Acceptable Review (Acceptable)
[2024-03-09] MEDS: OMEPRAZOLE 20 MG CAPSULE DR 40 MG PO (06:48)
--- NOTE | 2024-03-09 06:59 | PC.NURSE ---
Shift note: Pt's condition is improving. No nausea, anorexia, or headache reported. Pt confirmed regaining strength. Pt is independent room. NSR form tel reading,
[2024-03-09] MEDS: DOXYCYCLINE HYCLATE 100 MG PO (08:35)
--- NOTE | 2024-03-09 09:07 | PM.DS1 ---
DS: Providers Provider Date Seen: 03/09/24 Date of admission: 03/07/24 12:48 Primary care physician: Charlee Ching CNP Admitting Clinician: Cele Velez MD Attending Physician on discharge: Crystal Salinas MD Date of Discharge: 03/09/24 DS: Diagnosis Discharge Diagnosis (1) At high risk for tick borne illness: Status: Acute Problem details: - suspected tick-borne illness with fever, weakness,anorexia, elevated liver enzymes, thrombocytopenia, possible exposure at recent outdoor family reunion. - improving with doxycycline. Tick-borne panel pending. Continue treatment with outpatient oral doxycycline [id number], see PCP near end of treatment to determine if longer course is needed. (2) Bacteriuria: Status: Acute Problem details: - empirically covered with Ceftriaxone (03/07) - Urine culture negative; ceftriaxone discontinued (3) SVT (supraventricular tachycardia): Status: Resolved Problem details: - self-resolved quick run in ED, will keep on telemetry, replace K, normal Mg (4) MARLENE (acute kidney injury): Status: Resolved Problem details: - baseline creatinine 0.8, admission creatinine 1.4 (03/07) - presumably prerenal given recent illness - 03/08 resolved, creatinine now at baseline 0.7. Decrease IV fluids. - 03/09 creatinine 0.6 at discharge (5) Hypokalemia: Status: Acute Problem details: Mg 1.9 03/08. - 03/09 potassium is 3.5 today. Replaced orally. Recheck as outpatient. (6) Elevated liver enzymes: Status: Acute Problem details: - likely related to acute illness, no significant ETOH history, no abdominal pain - deferring imaging at this time - 03/09 improving. Continue treating for presumed tick-borne illnesses (7) Thrombocytopenia: Status: Acute Problem details: - platelets 31 (03/08), no acute bleeding, likely 2/2 tick-borne illness. No active bleeding or bruising. - No transfusion needed at this time. I have reviewed her medications and see there are no anticoagulants. Avoid pharmacologic VTE proplylaxis at this time. - 03/09 platelets improving, now 57. No active bleeding or brusing. F/u with PCP for recheck. (8) Acute dehydration: Status: Resolved Problem details: - poor po intake, elevated lactate, MARLENE - clinical picture c/w tick-borne illness, tests pending, Doxycycline empirically initiated 03/07/24 - 03/08 improving. Encourage oral intake of fluids. Decrease IV fluids to 75 mL/hour. - 03/09 resolved. Taking good po. (9) Tobacco dependence: Status: Chronic Problem details: - 1ppd, prn nicotine replacement DS: Summary Hospital Course Hospital Course: Per H&P: Radha Mancuso is a 73 year old female who presented to the emergency room this morning for a 1 week history of illness, weakness, and poor appetite. She's felt sick for the past 6-7 days, had a fever and headache at onset of symptoms; both have since resolved, but she continues to feel weak and isn't interested in eating or drinking. Hasn't noted any significant alleviating or aggravating factors. No chest pain, no dyspnea, no cough, no rashes, no joint pain, no dysuria. She was at a family reunion near [place] on February 22, multiple family members did note ticks at that time. ER Course and Findings: - platelets 60 (new finding), AST 60, elevated alk phos - WBC 5, elevated lactate - hematuria and pyuria on UA, culture pending - received 1L IVFs, IV Doxycycline - reassuring EKG, did have a short run of SVT on monitor during ER stay (pt asymptomatic during this) Patient was started on oral doxycycline for tick-borne illness and IV ceftriaxone for presumed UTI. Urine culture came back negative and ceftriaxone has been discontinued. Tick-borne panel is still pending at the time of this dictation. Patient has improved symptom menjivar, creatinine is improved and back to baseline, dehydration has resolved. Platelets reached a keara of 31 yesterday, and have improved to 57 today. Please see diagnoses above for further details. She is discharged home in stable and improved condition. I would like her to follow-up with her primary care provider in 5-7 days to recheck platelets and potassium. Time Spent with Patient Time attestation: Total time spent providing and/or coordinating discharge services: Exam Narrative: Exam Narrative: General: No acute distress. Awake, alert, oriented. No pallor. No jaundice. Oropharynx: Clear. Mucous membranes moist. Cardiovascular: Regular rate and rhythm. No murmurs, gallops, or rubs. Respiratory: Clear to auscultation bilaterally. No wheezes or crackles. Abdomen: Bowel sounds present. Extremities: No pedal edema. Const: Vital Signs, click to edit/add: Vital Signs - 24 hr 03/08/24 11:16 03/08/24 15:00 03/08/24 16:30 Temperature 98.4 F 98.6 F Pulse Rate 64 Pulse Rate [Left P ulse Oximeter] 66 68 Respiratory Rate 18 18 Blood Pressure [Le ft Arm] Blood Pressure [Ri ght Arm] 107/83 116/79 Pulse Oximetry 97 98 Oxygen Delivery Me thod Room Air Room Air 03/08/24 19:00 03/08/24 23:00 03/08/24 23:00 Temperature 97.9 F 99.2 F Pulse Rate Pulse Rate [Left P ulse Oximeter] 62 62 62 Respiratory Rate 18 18 18 Blood Pressure [Le ft Arm] Blood Pressure [Ri ght Arm] 122/95 H 110/77 Pulse Oximetry 95 96 Oxygen Delivery Me thod Room Air Room Air 03/08/24 23:00 03/09/24 03:00 Temperature 98.4 F Pulse Rate 63 Pulse Rate [Left P ulse Oximeter] 61 Respiratory Rate 18 Blood Pressure [Le ft Arm] 94/67 Blood Pressure [Ri ght Arm] Pulse Oximetry 95 Oxygen Delivery Me thod Room Air DS: Data Data Completed and Pending Completed studies during hospitalization: 03/07/2024 EKG: Normal sinus rhythm, 89 beats per minute, possible left atrial enlargement. Ordering Physician: Elma Osorio M.D. Date of Service: 03/07/24 Procedure(s): XR chest 1V portable Accession Number(s): [id number] cc: Charlee WHATLEY; Elma Osorio M.D.~ For Patients: As a result of the Century Cures Act, medical imaging exams and procedure reports are released immediately into your electronic medical record. You may view this report before your referring provider. If you have questions, please contact your health care provider. Indication: Weakness Technique: Chest 1 view Comparison: None Findings/Impression: Cardiovascular and mediastinum: Normal heart size with aortic tortuosity and atherosclerotic calcification. Some prominence of the aortic shadow at the level of the diaphragm. This can represent some aortic enlargement or hiatal hernia. As clinically desired, CT scan may have improved characterization. Lungs and pleural space: Lungs are clear. No sign of infiltrate or mass. No sign of pleural effusion. No pneumothorax. Bones and soft tissues: No acute findings. Dictated by Abelino Alvarez MD @ 03/07/2024 10:19:43 AM (Electronically Signed) Labs on day of discharge: Labs from last 24 hours 03/09/24 03/07/24 05:41 11:09 WBC 6.83 RBC 3.88 L Hgb 12.1 Hct 36.2 MCV 93 MCH 31 MCHC 33 RDW Coeff of Dago 14.3 Plt Count 57 L Neut % (Auto) 29.1 L Lymph % (Auto) 59.4 H Mathews % (Auto) 9.2 Eos % (Auto) 1.8 Baso % (Auto) 0.4 Neut # (Auto) 2.00 Lymph # (Auto) 4.10 H Mathews # (Auto) 0.60 Eos # (Auto) 0.12 Baso # (Auto) 0.03 Abs Immat Gran (auto) 0.01 Imm/Tot Granulo (auto) 0.1 Diff Slide Review Acceptable Review Sodium 136 Potassium 3.5 L Chloride 110 Carbon Dioxide 24 Anion Gap 2 L BUN 16 Creatinine 0.6 Estimated Creat Clear 44.56 Estimated GFR 96 Glucose 106 Calcium 7.9 L Total Bilirubin 0.6 AST 39 H ALT 19 Alkaline Phosphatase 100 Total Protein 5.1 L Albumin 2.4 L Lyme Disease Antibody 0.51 Discharge Plan Discharge Disposition: Home, Self-Care Date of Admission: 03/07/24 12:48 Attending Provider on Discharge: Crystal Salinas Primary Care Provider: Charlee Ching Condition: Improved Anticipated Discharge Date/Time: 03/09/24 09:29 Discharge Medications: New doxycycline hyclate 100 mg Tablet 100 mg PO BID 8 Days Qty: 16 0RF Continued omeprazole 20 mg tablet,delayed release (DR/EC) 20 mg PO DAILY Discharge Orders: Discharge Order (Routine); Ordered 03/09/24 Ordered By: Crystal Sailnas Additional Instructions: CBC, Potassium with PCP in 5-7 days. Activity Level: No Restrictions Discharge Diet: Regular Follow Up Appointments: Charlee Ching, [employer] [Primary Care Provider] - (5-7 days.) Forms: [facility] Info Instructions
[2024-03-09 09:52] VITALS: BP 105/77; PULSE 64; RESP 18; TEMP 36.4; O2SAT 98
[2024-03-09 09:53] VITALS: PULSE 64; RESP 18
--- NOTE | 2024-03-09 14:08 | PC.NURSE ---
Discharge: Patient pleasant and cooperative, A&O. VSS, afebrile. Patient denies pain this shift. IV removed with tip intact. Discharge instructions provided, all questions answered. Tolerating regular diet. Discharged to home at 1210.
[2024-03-10 01:06] LABS: Anaplasma phagocyt PCR Detected; Babesia microti by PCR Not Detected; Babesia species by PCR Not Detected; Ehrlichia chaffeensis by PCR Not Detected; Ehrlichia ewingii/canis by PCR Not Detected; Ehrlichia muris-like by PCR Not Detected
== END 2024-03-09 12:10 | disposition home or self-care (01) | DRG 868 ==
LOC: ED 12:01 → MEDSURG 12:33
PROVIDERS: Family Medicine; Admitting Provider Family Medicine; Emergency Provider Family Medicine; PCP Nurse Practitioner Family; Visit Provider Family Medicine
DX: A79.82 Anaplasmosis [A. phagocytophilum] (principal); I47.10 Supraventricular tachycardia, unspecified; N17.9 Acute kidney failure, unspecified; E86.0 Dehydration; R74.01 Elevation of levels of liver transaminase levels; R82.71 Bacteriuria; R31.9 Hematuria, unspecified; R82.81 Pyuria; D69.6 Thrombocytopenia, unspecified; E87.6 Hypokalemia; W57.XXXA Bitten or stung by nonvenomous insect and other nonvenomous arthropods, initial encounter; R53.1 Weakness; F17.210 Nicotine dependence, cigarettes, uncomplicated
CPT/HCPCS: 36415; 71045; 80053; 81001; 83605; 83735; 83880; 84145; 84443; 84484; 85025; 86140; 86308; 86618; 86789; 87086; 87468; 87469; 87484; 87631; 87798; 93005; 94761; 99284; 99285; A9270; J0696; J7030

== ENCOUNTER 2025-01-15 10:40 | Outpatient (CLI) | payer MEDICARE, SELFPAY | END 2025-01-15 10:41 | disposition home or self-care (01) | LOC: LKVREF 10:41 | PROVIDERS: PCP Nurse Practitioner Family; Visit Provider Nurse Practitioner Family | DX: E87.6 Hypokalemia (principal); Z13.6 Encounter for screening for cardiovascular disorders | CPT/HCPCS: 80053; 80061 ==